=== PATIENT | female | born 1990 | race Caucasian/White ===

== ENCOUNTER 2017-01-06 19:07 | Emergency (ER) | payer OTHER ==
[2017-01-06 19:07] VITALS: BMI 29.8
[2017-01-06 19:25] VITALS: BP 116/64; PULSE 77; RESP 18; TEMP 98.5; O2SAT 99
--- NOTE | 2017-01-06 20:17 | ED PDOC ---
HPI: Abdomen Time Seen by Provider: 01/06/17 20:06 Chief Complaint (Nursing): Female Genitourinary Chief Complaint (Provider): abdominal pain History Per: Patient History/Exam Limitations: no limitations Onset/Duration Of Symptoms: Days (1 month), Waxing/Waning Current Symptoms Are (Timing): Still Present Location Of Pain/Discomfort: Suprapubic Quality Of Discomfort: "Pain" Additional History Per: Patient Additional Complaint(s): 26 y/o female presents with suprapubic abdominal pain x 1 month. Patient is 6 months post-, states pain started after her period 12/01/16, which lasted longer than usual. Patient also noted a "ball" to her vaginal area, not painful. Denies fever, nausea/vomiting, changes in bowel movements, dysuria, hematuria, vaginal bleeding/discharge. Past Medical History Reviewed: Historical Data, Nursing Documentation, Vital Signs Vital Signs: Last Vital Signs Temp 98.5 F 01/06/17 19:22 Pulse 77 01/06/17 19:22 Resp 18 01/06/17 19:22 BP 116/64 01/06/17 19:22 Pulse Ox 99 01/06/17 20:25 - Medical History PMH: No Chronic Diseases - Surgical History Surgical History: No Surg Hx - Family History Family History: States: No Known Family Hx - Living Arrangements Living Arrangements: With Family - Immunization History Hx Tetanus Toxoid Vaccination: No Hx Influenza Vaccination: Yes Hx Pneumococcal Vaccination: No - Home Medications Home Medications: Ambulatory Orders Medication Instructions Recorded Ibuprofen [Motrin Tab] 400 mg PO Q8 #30 tab 10/02/16 Nitrofurantoin Macrocrystals 1 cap PO BID #14 cap 10/02/16 [Macrobid] - Allergies Allergies/Adverse Reactions: Allergies Allergy/AdvReac Type Severity Reaction Status Date / Time No Known Allergies Allergy Verified 06/02/15 10:41 Review of Systems ROS Statement: Except As Marked, All Systems Reviewed And Found Negative Genitourinary Female: Positive for: Pelvic Pain Physical Exam - Reviewed Nursing Documentation Reviewed: Yes Vital Signs Reviewed: Yes - Physical Exam Appears: Positive for: Well, Non-toxic, No Acute Distress Head Exam: Positive for: ATRAUMATIC, NORMAL INSPECTION, NORMOCEPHALIC Skin: Positive for: Normal Color Eye Exam: Positive for: Normal appearance ENT: Positive for: Normal ENT Inspection Cardiovascular/Chest: Positive for: Regular Rate, Rhythm Respiratory: Positive for: Normal Breath Sounds Gastrointestinal/Abdominal: Positive for: Bowel Sounds, Soft, Tenderness ( suprapubic) Pelvic Exam: Positive for: External Exam Normal (no swelling, abscesses noted), Speculum Exam Normal, No Cerv. Motion Tender, Other (exam chaperoned by Yue angulo). Negative for: Active Bleeding Back: Positive for: Normal Inspection Extremity: Positive for: Normal ROM Neurologic/Psych: Positive for: Alert, Oriented - Laboratory Results Result Diagrams: 01/06/17 20:25 01/06/17 20:25 - ECG O2 Sat by Pulse Oximetry: 99 - Progress ED Course And Treament: labs, urine, u/s EXAM: US Pelvis, Transvaginal EXAM DATE/TIME: Exam ordered 01/06/2017 8:24 PM CLINICAL HISTORY: 26 years old, female; Pain; Pelvic pain TECHNIQUE: Real-time transvaginal pelvic ultrasound (complete) with image documentation. Transvaginal imaging was used for better evaluation of the endometrium and adnexa. COMPARISON: No relevant prior studies available. FINDINGS: Uterus/cervix: The uterus measures 8.3 cm in its cephalocaudad dimension and 4.7 x 7.2 cm in its AP and lateral dimensions. The endometrium measures 8 mm and demonstrates an ovoid hypoechoic area which may reflect a submucosal fibroid or polyp. Right ovary: The right ovary measures 3.0 x 1.3 x 3.1 cm and demonstrates minimal follicular change and normal blood flow. Left ovary: The left ovary measures 3.2 x 2.7 x 3.3 cm and demonstrates normal blood flow. Free fluid: No free fluid. IMPRESSION: 1. Ovoid hypoechoic area within the endometrium which may reflect a small submucosal fibroid or polyp. 2. Otherwise negative pelvic sonogram. Patient educated on findings, discharged with instructions to follow up [employer] 2-3 days. Return to ED for worsening/concerning symptoms. Disposition - Clinical Impression Clinical Impression: Uterine fibroid - Patient ED Disposition Is Patient to be Admitted: No Counseled Patient/Family Regarding: Studies Performed, Diagnosis, Need For Followup - Disposition Disposition: Routine/Home Disposition Time: 21:42 Condition: STABLE Instructions: Uterine Fibroids (ED)
[2017-01-06 20:44] LABS: BASO # 0.1 K/uL (0.0-0.2); BASO % 0.8 % (0.0-2.0); EOS # 0.2 K/uL (0.0-0.7); EOS % 2.7 % (0.0-4.0); HEMATOCRIT 34.4 % (34.0-47.0); LYMPH # 2.8 K/uL (1.0-4.3); LYMPH % 31.3 % (20.0-40.0); MEAN CELL VOLUME 78.1 fl (81.0-99.0); MEAN CORPUSCULAR HEMOGLOBIN 25.7 pg (27.0-31.0); MEAN CORPUSCULAR HGB CONC 32.9 g/dL (33.0-37.0); MEAN PLATELET VOLUME 8.5 fl (7.2-11.7); MONO # 0.6 K/uL (0.0-0.8); MONO % 6.4 % (0.0-10.0); NEUT # 5.3 K/uL (1.8-7.0); NEUT % 58.8 % (50.0-75.0)
[2017-01-06 20:52] LABS: RBC URINE 2 /hpf (0-3); URINE BACTERIA RARE (<OCC); URINE BILIRUBIN NEGATIVE (NEGATIVE); URINE BLOOD NEGATIVE (NEGATIVE); URINE COLOR YELLOW (YELLOW); URINE GLUCOSE (UA) NEG (Normal); URINE KETONE NEGATIVE (NEGATIVE); URINE LEUKOCYTE ESTERASE NEG Leu/uL (Negative); URINE PROTEIN NEGATIVE (NEGATIVE); URINE UROBILINOGEN 0.2-1.0 mg/dL (0.2-1.0); WBC URINE < 1 /hpf (0-5)
[2017-01-06 20:59] LABS: BLOOD UREA NITROGEN 15 mg/dl (7-17); CALCIUM 9.6 mg/dL (8.4-10.2); CARBON DIOXIDE 21 mmol/L (22-30); CHLORIDE 105 mmol/L (98-107); GFR AFRICAN-AMERICAN > 60; GLUCOSE,RANDOM 94 mg/dL (65-105); POTASSIUM 4.1 MMOL/L (3.6-5.0); SODIUM 138 mmol/l (132-148)
--- NOTE | 2017-01-07 09:33 | US ---
HISTORY: pelvic pain COMPARISON: None available. TECHNIQUE: Endovaginal ultrasound examination of the pelvis was performed. The endovaginal exam was performed for better evaluation of the endometrium and deep pelvic structures. FINDINGS: UTERUS: Measures 8.3 x 7.3 x 4.7 cm. Normal in size and appearance. No fibroid or other mass lesion seen. ENDOMETRIUM: Measures 7.5 mm in diameter. There is focal slightly hypoechoic structure at the mid to distal endometrial stripe measures approximately 12 x 6 millimeter may represent submucosal fibroid versus endometrial polyp. CERVIX: No cervical abnormality identified. RIGHT OVARY: Measures 3 x 3.1 x 1.3 cm. No solid mass. Normal flow. LEFT OVARY: Measures 3.2 x 3.3 x 2.7 cm. No solid mass. Normal flow. FREE FLUID: No significant free fluid noted. OTHER FINDINGS: None. IMPRESSION: Approximately 1.2 x 0.6 centimeter focal slightly hypoechoic structure at the endometrium may represent submucosal fibroid versus endometrial polyp. If clinically warranted further assessment by MRI may be obtained. Otherwise grossly unremarkable ultrasound examination of the pelvis. Preliminary report was submitted by [facility].
== END 2017-01-06 21:48 | disposition home or self-care (01) ==
LOC: H.ER 19:07
DX: D25.9 Leiomyoma of uterus, unspecified (principal)